=== PATIENT | male | born 1990 | race Two or more races ===

== ENCOUNTER 2021-12-30 20:45 | Emergency (ER) | payer MEDICAID, OTHER ==
[~2021-12-30] VITALS: Ht 162.6 cm; Wt 72.0 kg
[2021-12-30] MEDS ORDERED: SODIUM CHLORIDE 0.9% 1,000 ML IV ONE ×2 (22:00)
[2021-12-30] MEDS ORDERED: THIAMINE 100mg/ml INJ (200mg/2ml VIAL) IV ONE (22:00)
[2021-12-30] MEDS ORDERED: LORazepam 2MG/ML-1ML VIAL IV ONE (22:00)
[2021-12-30 23:11] LABS: Basophils # (auto) 0 10 ^3/uL (0-0.2); Basophils % (auto) 0.2 % (0.0-2.0); Eosinophils # (auto) 0 10 ^3/uL (0-0.8); Hematocrit 52.2 % (41.0-53.0); Hemoglobin 17.8 g/dL (13.5-17.5); Lymphocytes # (auto) 1.8 10 ^3/uL (0.4-5.4); Lymphocytes % (auto) 9.6 % (10.0-50.0); Mean Corpuscular Hemoglobin 31.1 pg (28.0-32.0); Mean Corpuscular Hgb Conc. 34.1 g/dL (32.0-36.0); Mean Corpuscular Volume 91.4 fL (80.0-100.0); Monocytes # (auto) 1.6 10 ^3/uL (0-1.3); Monocytes % (auto) 8.5 % (0.0-12.0); Neutrophils % (auto) 81.7 % (37.0-80.0); Nucleated Red Blood Cells % 0.1 %; Red Blood Cells 5.72 10^6/uL (4.5-5.90); Red Cell Distribution Width 12.7 % (11.8-14.3); White Blood Cell 18.4 10^3/uL (4.4-10.8)
[2021-12-30 23:26] LABS: Anion Gap 18 (5-15); Blood Urea Nitrogen 10 mg/dL (7-18); Carbon Dioxide 22 mmol/L (21-32); Chloride 92 mmol/L (98-107); Glucose 104 mg/dL (74-106); Magnesium 1.5 mg/dL (1.6-2.6); Potassium 3.9 mmol/L (3.5-5.1); Sodium 132 mmol/L (136-145)
[2021-12-30 23:29] LABS: Alanine Aminotransferase 56 U/L (16-61); Albumin 4.8 g/dL (3.4-5.0); Aspartate Aminotransferase 57 U/L (15-37); BUN/Creatinine Ratio 3.8; Blood Alcohol < 3.0 mg/dL (0-5); Calcium 9.7 mg/dL (8.5-10.1); GFR African American 37 mL/min; GFR Non-African American 30 mL/min
[2021-12-30 23:32] LABS: Alkaline Phosphatase 56 U/L (45-117); Bilirubin, Total 1.8 mg/dL (0.2-1.0); Total Protein 9.1 g/dL (6.4-8.2)
[2021-12-31 01:00] VITALS: BP 143/98
== END 2021-12-31 03:11 | disposition home or self-care (01) ==
LOC: EDBD 20:45 → ER 20:45
DX: F10.239 Alcohol dependence with withdrawal, unspecified (principal); I10 Essential (primary) hypertension; F17.210 Nicotine dependence, cigarettes, uncomplicated; Z88.8 Allergy status to other drugs, medicaments and biological substances; Y90.0 Blood alcohol level of less than 20 mg/100 ml
CPT/HCPCS: 36415; 80053; 80320; 83735; 85025; 96361; 96374; 96375; 99284; J2060; J3411; J7030